=== PATIENT | male | born 1995 | race Caucasian/White ===

== ENCOUNTER 2018-05-09 09:54 | Emergency (ER) | payer SELFPAY, BC ==
[2018-05-09] MEDS: ONDANSETRON (ODT) 4 MG TAB ODT (10:16)
[2018-05-09] MEDS: KETOROLAC 30 MG INJ IM (10:17)
== END 2018-05-09 11:02 | disposition home or self-care (01) ==
LOC: FTE 09:54
DX: R11.10 Vomiting, unspecified (principal)
CPT/HCPCS: 96372; 99284-25

== ENCOUNTER 2018-07-04 11:23 | Emergency (ER) | payer MEDICAID | END 2018-07-04 13:45 | disposition home or self-care (01) | LOC: FTE 11:23 | DX: M79.641 Pain in right hand (principal) | CPT/HCPCS: 29125; 73130-RT; 99283-25 ==

== ENCOUNTER 2019-01-14 11:45 | Emergency (ER) | payer SELFPAY, MEDICAID | END 2019-01-14 16:53 | disposition left against medical advice (07) | LOC: FTE 11:45 | DX: Z53.21 Procedure and treatment not carried out due to patient leaving prior to being seen by health care provider (principal) ==